=== PATIENT | female | born 1965 | race Caucasian/White ===

== ENCOUNTER → 2017-10-23 15:27 | Outpatient (CLI) | payer OTHER, SELFPAY ==
--- NOTE | 2017-10-23 15:40 | MM_ITS ---
MM Dig screening mamm BI w/CAD CAD Screening COMPARISON: None, patient had previous mammogram but does not know where they were performed INDICATION: There is no personal or family history of breast cancer TECHNIQUE: Standard CC and MLO images were obtained. R2 CAD reviewed. FINDINGS: Scattered diffuse fibroglandular densities are seen throughout both breasts. There are 3 mole markers near the axillary tail the right breast. There are 2 tiny benign-appearing nodular densities upper outer quadrant right breast which are likely microcysts or possibly small fibroadenomas. There is a slightly lobulated lesion just deep to the nipple of the left breast and recommend the patient return for spot compression views of this lesion and ultrasound for additional evaluation. There are fatty replaced nodes in both axilla. IMPRESSION: Fibrofatty parenchyma with somewhat lobulated asymmetric density left breast BI-RADS Category: 0 Need Additional Imaging Evaluation RECOMMENDED FOLLOW-UP: IMM - IMMEDIATE FOLLOW-UP RECOMMENDED (A letter has been sent to the patient regarding results of the study.)
== END ==
PROVIDERS: Visit Provider Internal Medicine
DX: Z12.31 Encounter for screening mammogram for malignant neoplasm of breast (principal)
CPT/HCPCS: 77067

== ENCOUNTER → 2017-11-13 13:01 | Outpatient (CLI) | payer OTHER, SELFPAY ==
--- NOTE | 2017-11-13 | US_ITS ---
MM Dig mamm BI DX w/CAD, US breast RT complete, US breast LT complete Ordering Physician: Shantel Roth Patient Age: 52 years: Female HISTORY: ITS.REASON: ABNORMAL MAMMand studies bilateral TECHNIQUE: Additional spot views left breast followed by bilateral breast ultrasound including axillary survey COMPARISON :October 23, 2017 baseline mammogram ======== DIAGNOSTIC LEFT MAMMOGRAM-SPOT VIEWS: Smooth ovoid most likely benign 9.5 mm x 6 mm nodular density at anterior breast, towards 5:00 retroareolar region. This persist on all images and matches the previous density. Ultrasound will be performed to further evaluate. BILATERAL BREAST ULTRASOUND including axillary survey Ultrasound survey of the entire right and left breast performed along with axillary survey LEFT BREAST ULTRASOUND . Ultrasound reveals a small 3.5 mm cystic area at the 5:00 retroareolar region. This is smaller than I would've anticipated a new may be some mild wall thickening associated with it posteriorly and into the size of mammography.. Benign axillary nodes observed as well. Follow-up ultrasound and mammogram 6 months suggested to further evaluate this density on left RIGHT BREAST ULTRASOUND 12 3.2 mm hypoechoic area at 10:00. Similar 3.4 mm area at 11:00 as well. These are quite small appear to be debris-filled cyst. There The region of the density seen on mammography but are smaller than I would've anticipated.. Benign axillary nodes observed as well. I suggest a including follow-up right mammogram in 6 months rather than ultrasound, in order to confirm these are the small round densities seen on mammography aren't stable when patient returns in 6 months ------IMPRESSION: - 1. Recommend bilateral mammogram 6 months,- with left breast ultrasound 6 months (6 month follow-up mammogram will hopefully confirm stable baseline character of the small benign-appearing densities bilaterally) 2. Left breast: 9.5 x 6 mm smooth ovoid density retroareolar region 5:00 seen on mammography.. Ultrasound of this area reveals a smaller than expected cystic area in the same region. No solid worrisome nodules concern. However given these findings are suggestive follow-up left mammogram ultrasound 6 months 3. Right breast. Ultrasound also performed to further evaluate the small round densities and lateral right breast seen on recent mammogram screening mammogram.-Each measuring approximately 7 mm . Ultrasound reveals 2 small cystic areas 3.4 mm each. Notably smaller than I would've expected from mammography. BI-RADS Category: 3 Benign Finding Short Term Follow-up RECOMMENDED FOLLOW-UP: 6M - 6 MONTH FOLLOW-UP Recommend bilateral mammogram 6 months,- with left breast ultrasound 6 months (A letter has been sent to the patient regarding results of the study.)
== END ==
PROVIDERS: PCP Internal Medicine; Visit Provider Internal Medicine
DX: R92.8 Other abnormal and inconclusive findings on diagnostic imaging of breast (principal)
CPT/HCPCS: 76641; 77066

== ENCOUNTER → 2018-03-16 11:04 | Outpatient (CLI) | payer OTHER, SELFPAY ==
--- NOTE | 2018-03-16 11:14 | MM_ITS ---
MM Dig mamm BI DX w/CAD COMPARISON: Digital mammograms with CAD 10/23/2017 and additional views left breast 11/13/2017 and ultrasound left breast 11/13/2017 and 03/16/2018 INDICATION: Follow-up asymmetric density near the nipple left breast TECHNIQUE: Standard MLO and CC views were obtained FINDINGS: Scattered fibroglandular densities are seen throughout both breasts. There are 2 stable tiny benign-appearing nodular densities upper outer quadrant right breast. The asymmetric density just lateral to the nipple left breast is again noted and shows very subtle change in the border of the lesion. Also ultrasound of the left breast show slight irregularity of the border of the lesion when compared to the previous ultrasound. There appear to be internal echoes with very little if any acoustic enhancement noted. Though the changes are subtle of bleeding the patient should be scheduled for biopsy in view of the subtle interval changes from the previous studies. Both breast are otherwise unremarkable. There are no suspicious microcalcifications. IMPRESSION: Fibrofatty parenchyma with possible subtle interval change in asymmetric density near the nipple left breast BI-RADS Category: 4 Suspicious Abnormality-Biopsy Considered RECOMMENDED FOLLOW-UP: BIO - BIOPSY RECOMMENDED (A letter has been sent to the patient regarding results of the study.)
--- NOTE | 2018-03-16 11:15 | US_ITS ---
US breast LT complete COMPARISON: Ultrasound left breast 11/13/2017 HISTORY: Follow-up asymmetric density left breast TECHNIQUE: Targeted ultrasound left breast FINDINGS: There is a small hypoechoic oval nodule at the 5:00 lesion near the nipple and the borders are somewhat more ill-defined on today's study than on the previous ultrasound 11/13/2017. There is little or no acoustic enhancement. There is a node in the left axilla which shows partial fatty replacement. IMPRESSION: Subtle change in asymmetric density left breast and in view of the interval change in the border of the lesion as noted on the mammogram performed the same date with the patient should be scheduled for follow-up biopsy.
== END ==
PROVIDERS: PCP Internal Medicine; Visit Provider Internal Medicine
DX: R92.8 Other abnormal and inconclusive findings on diagnostic imaging of breast (principal)
CPT/HCPCS: 76641; 77066

== ENCOUNTER → 2019-04-16 09:52 | Outpatient (CLI) | payer OTHER, SELFPAY ==
--- NOTE | 2019-04-16 10:11 | US_ITS ---
PROCEDURE: US TRANSVAGINAL CLINICAL INDICATION: 6 MONTH F/U ABN BLEEDING,POST MENOPAUSAL COMPARISON: No exams were available for comparison FINDINGS: UTERUS: 11.5 centimeter x 9cmx 7cm with a combined endometrial thickness of 16.3mm LEFT OVARY: 3.3 [id number] with a volume of 11.8ml. RIGHT OVARY: 2.7 centimeterx2.2 [id number] with a volume of 6.8ml. Within the posterior myometrium of the uterine fundus there is a solid homogeneous somewhat hypoechoic lesion measuring 4.5 centimeters. There is no fluid in the cul-de-sac. IMPRESSION: Intramural posterior fundal lesion likely fibroid. Somewhat thickened a endometrial stripe which is nonspecific and could be related to hormone replacement therapy. Dictated by: Luis Rhodes 04/16/2019 12:47 Electronically signed by Luis Rhodes in [place] 04/16/2019 12:47
--- NOTE | 2019-04-16 10:11 | MM_ITS ---
PROCEDURE: MM DIG SCREENING MAMM BI W/CAD CLINICAL INDICATION: SCREENING There is no personal or family history of breast cancer COMPARISON: [facility] MM Dig screening mamm BI w/CAD from 10/23/2017 [facility] MM Dig mamm BI DX w/CAD from 11/13/2017 [facility] MM Dig mamm BI DX w/CAD from 03/16/2018 TECHNIQUE: Standard CC and MLO images were obtained. R2 CAD reviewed. FINDINGS: Moderate diffuse fibroglandular densities are seen throughout both breasts. There are 2 stable benign-appearing nodular densities near the axillary tail right breast. There is a small nodular density near the nipple left breast which is stable unchanged from previous exams. There are 2 mole markers near the axilla right breast. There is no suspicious lesion and no suspicious microcalcifications. IMPRESSION: Fibrofatty parenchyma with no suspicious lesions seen. BI-RAD Category: 2 Benign Finding(s) FOLLOW-UP: 1YR 1 Year Follow-up (A letter has been sent to the patient regarding results of the study.) Dictated by: Dr. Papo Moya MD 04/21/2019 11:[address] Papo Moya MD in [place] 04/21/2019 11:00
== END ==
PROVIDERS: PCP Internal Medicine; Referring Provider Nurse Practitioner Women's Health; Visit Provider Internal Medicine
DX: R92.8 Other abnormal and inconclusive findings on diagnostic imaging of breast (principal); N93.8 Other specified abnormal uterine and vaginal bleeding
CPT/HCPCS: 76830; 77067

== ENCOUNTER 2021-01-23 16:28 | Emergency (ER) | payer OTHER, SELFPAY ==
[2021-01-23 16:30] VITALS: BP 120/73; PULSE 94; RESP 20; TEMP 37.2; O2SAT 93; BMI 45.9
[2021-01-23 16:52] VITALS: BP 120/73; PULSE 94; RESP 20; TEMP 37.2; O2SAT 93
--- NOTE | 2021-01-23 16:52 | HMH.EDUTC ---
[facility] [place] Clinical Impression: Close exposure to COVID-19 virus Acute bronchitis Qualifiers: Bronchitis organism: unspecified organism Qualified Code(s): J20.9 - Acute bronchitis, unspecified Disposition: Home, Self-Care Condition on Discharge: Good Instructions: DI for COVID-19 (Suspected or Confirmed ), DI for Acute Bronchitis Additional Instructions: covid swab was sent to lab, call tomorrow for results. self isolate until test results are known to be negative No sign of a bacterial infection. Likely viral. Viruses can take 7-14 days to run their course. Nasal saline and bulb syringe or nose Monae to remove nasal drainage to help with nasal congestion. Hard to eat, drink, sleep with nasal congestion so important to keep this cleaned out. Monitor temp. Tylenol or Motrin as needed for pain or fever Encourage fluids, water, Gatorade, Powerade, Pedialyte if infant/toddler/child Warm salt water gargles Warm fluids Sore throat lozenges Sleep elevated Humidifier/vaporizer Follow-up immediately for new or worsening symptoms or no noticeable improvement over the next 48-72 hours. Prescriptions: predniSONE [Prednisone 20mg Tab] 20 mg PO BID #10 tab Prescription Printed Referrals: Shantel Roth [Primary Care Provider] - Time of Disposition: 16:55 Medical Decision Making - Bobby Inquiry Pt receiving controlled substance: No Vital Signs: 01/23/21 16:30 Temperature 98.9 F Temperature Source Oral Pulse Rate [Right Brachial] 94 H Respiratory Rate 20 Blood Pressure [Right Arm] 120/73 Blood Pressure Mean [Right Arm] 88 Blood Pressure Source [Right Arm] Automatic Cuff Blood Pressure Position [Right Arm] Sitting 02 Sat by Pulse Oximetry 93 L Oxygen Delivery Method Room Air Orders (Tests/Meds): ORDERS Category Date Time Status Covid-19 Nasal PCR ([facility]) Routine Lab 01/23/21 16:33 [place] [facility] [place] - General Chief complaint: [facility] Stated complaint: covid test Time Seen by Provider: 01/23/21 16:52 Mode of Arrival: Ambulatory Source of Information: Patient Limitations: No Limitations Description of Symptoms (Recalled from Triage Doc. by RN): PATIENT C/O SORE THROAT, SOA, AND COUGH X 1 WEEK. EXPOSED TO HEENT Symptoms (Recalled from RN notes): Yes Resp Symptoms (Recalled from RN notes): Yes Skin Symptoms (Recalled from RN notes): No MS Symptoms (Recalled from RN notes): No Functional Status (Recalled from RN notes): WNL - History of Present Illness Provider Complaint: 55 yr old female presents for coughing up clear sputum, sore throat and tirdness for one week. + for covid - Related Data Previous Rx's Medication Instructions Recorded predniSONE [Prednisone 20mg 20 mg PO BID #10 tab 01/23/21 Tab] Allergies Allergy/AdvReac Type Severity Reaction Status Date / Time No Known Allergies Allergy Verified 12/08/18 16:14 - Worker's Comp Is this a Worker's Comp case?: No H History - Hepatitis A Screen Drug use history?: No High risk sexual behaviors?: No History of sexually transmitted infection?: No Currently employed?: No Childcare worker?: No Do you have indoor plumbing?: Yes Do you have electricity?: Yes Attestation statement:: This patient has been screened for Hepatitis A risk factors. I have reviewed the patient's past medical history: Yes - Social History Smoking Status: Never smoker Alcohol Intake: never Occupational Status: other ROS Obtained: Yes All systems reviewed & no additional complaints - Constitutional Constitutional: Reports system reviewed and no additional complaints, except as docu, Denies body ache, Reports fatigue, Reports fever(s) - Eyes Eyes: Reports system reviewed and no additional complaints, except as docu, Denies blurry vision - ENT Ears, Nose, Mouth, and Throat: Reports system reviewed and no additional complaints, except as docu, Denies bleeding gums - Cardiovascular Cardiovasc
== END 2021-01-23 16:56 | disposition home or self-care (01) ==
PROVIDERS: Emergency Provider Nurse Practitioner Family; PCP Internal Medicine
DX: U07.1 COVID-19 (principal); J20.9 Acute bronchitis, unspecified
CPT/HCPCS: 99202; C9803; G0463; U0003; U0005